=== PATIENT | female | born 1965 | race Caucasian/White ===

== ENCOUNTER 2020-08-27 20:08 | Inpatient (IN) | payer MEDICARE, OTHER ==
[~2020-08-27] VITALS: Ht 165.1 cm; Wt 83.0 kg
[2020-08-27 20:57] VITALS: BP 139/76
[2020-08-27] MEDS ORDERED: TEMAZEPAM 7.5 MG CAPSULE PO PRN (21:00)
[2020-08-27] MEDS ORDERED: ACETAMINOPHEN 325 MG TABLET PO PRN (21:00)
[2020-08-27] MEDS ORDERED: BLOOD SUGAR DIAGNOSTIC 1 EACH STRIP IN ONE (21:00)
[2020-08-27] MEDS ORDERED: MAGNESIUM HYDROXIDE 30 ML UDC PO PRN (21:00)
[2020-08-27] MEDS ORDERED: LORAZEPAM 0.5 MG TABLET PO PRN (21:00)
[2020-08-27] MEDS ORDERED: MAG HYDROX/AL HYDROX/SIMETH 30 ML UDC PO PRN (21:00)
[2020-08-28] MEDS ORDERED: ARIP10TA9 PO (00:08)
[2020-08-28] MEDS ORDERED: LEVO50TA8 PO (00:08)
[2020-08-28] MEDS ORDERED: SERT50TA PO (00:08)
--- NOTE | 2020-08-28 00:08 | NUR ---
GPS RN NOTE: ADMISSION NOTE PT ARRIVED ON THE UNIT @ 2044, PT WAS ADMITTED FROM [facility] PT IS PLACED ON A 5150 DUE TO GD, PER HOLD PT WAS BROUGHT INTO [facility] BY LAW ENFORCEMENT ON 08/26 AFTER SHE LEFT HER HER SHELTER AMA AND WAS LATE FOUND WALKING ON THE STREETS NAKED. UPON ASSESSMENT PT CLAIMS THAT SHE DOES NOT LIVE IN A SHELTER BUT LIVES IN A HOUSE BY HERSELF BUT SHE DOES NOT WANT TO TELL ME WHERE. PT IS A/O X3, FLAT, BLUNT AFFECT, UNKEPT, UNCOOPERATIVE, PARANOID, GUARDED, ANXIOUS, LABILE MOOD. PT REFUSED SKIN ASSESSMENT, PT REFUSED TO ANSWER QUESTIONS SHE STATED "I DON'T BELONG HERE LEAVE ME ALONE", PT DENIES SI/HI, DENIES AVH BUT IS FOUND TALKING TO SELF. VSS AT THIS TIME, NOTED PT HAD MILD NONPITTING EDEMA +2, ON ANKLES, NO DISTRESS NOTED OR C/O OF PAIN. PT HAS MEDICAL HISTORY OF HYPOTHYROIDISM, PSYCH HX: BIPOLAR D/O AND SCHIZOPHRENIA. PT WILL BE UNDER THE MEDICAL OF DR. BOWMAN AND PSYCHIATRIC CARE OF DR. VICENTE. PAGED DR. BOWMAN WHO IS [employer] @ 0000, FOR MED RECON. PT ADVISED OF HOLD, ADVISEMENT GIVEN TO PT, PT MADE AWARE OF THE UNIT, WILL CONTINUE TO MONITOR Q15MIN FOR SAFETY AND BEHAVIOR.
[2020-08-28 05:23] LABS: BILIRUBIN,URINE NEGATIVE (NEGATIVE); COLOR,URINE YELLOW (YELLOW); PROTEIN,URINE NEGATIVE (NEGATIVE); UGLUCOSE NEGATIVE (NEGATIVE)
[2020-08-28 05:24] LABS: LEUKOCYTE ESTERASE ,URINE SMALL (NEGATIVE); NITRITE, URINE NEGATIVE (NEGATIVE); UROBILINOGEN,URINE 0.2 EU/dL (0.2)
[2020-08-28 05:25] LABS: BACTERIA,URINE Few /HPF (None Seen); SQUAMOUS EPITHELIAL CELL,UR Many /HPF (None Seen)
[2020-08-28 05:26] LABS: URINE AMORPHOUS PHOSPHATES Many /HPF (None Seen)
[2020-08-28 08:00] VITALS: BP 138/68
[2020-08-28] MEDS: LEVOTHYROXINE SODIUM 50 MCG TABLET PO SCH (08:45)
--- NOTE | 2020-08-28 09:00 | NUR ---
RN NOTE- PT ALERT ORIENTED TO SELF, CONFUSED DISORGANIZED INTERNALLY PREOCCUPIED, MUMBLING GESTURING TO CEILING, DENIES ALL BUT CONFUSION PRESENT, PO INTAKE GOOD USES BR , BRUSHED TEETH AND PERFORMED MINOR GROOMING
[2020-08-28 16:00] VITALS: BP 137/69
[2020-08-28] MEDS: CEPHALEXIN MONOHYDRATE 500 MG CAPSULE PO SCH (17:41)
[2020-08-28 19:44] VITALS: BP 145/71
[2020-08-28] MEDS: risperiDONE 1 MG TABLET PO SCH (20:01)
[2020-08-29] MEDS: risperiDONE 1 MG TABLET PO SCH ×2 (07:59→20:07)
[2020-08-29 08:00] VITALS: BP 134/73
[2020-08-29] MEDS: CEPHALEXIN MONOHYDRATE 500 MG CAPSULE PO SCH ×2 (08:00→20:07)
[2020-08-29] MEDS: LEVOTHYROXINE SODIUM 50 MCG TABLET PO SCH (08:00)
--- NOTE | 2020-08-29 14:27 | NUR ---
Initial Discharge Plan: Unable to ascertain where the pt resides due to the pts psychosis. Per pt, she does not want to state where she lives. KIMBERLEE will work with the MD and the pt regarding appropriate discharge planning. SW will form a safe and proper discharge.
--- NOTE | 2020-08-29 14:27 | NUR ---
Family Contact: Pt does not have any family listed for the SW to contact.
[2020-08-29 16:00] VITALS: BP 144/76
[2020-08-29 19:45] VITALS: BP 134/66
[2020-08-30 07:53] LABS: BASOPHILS % (AUTO) 0.6 % (0.0-2.0); EOSINOPHILS % (AUTO) 2.8 % (0.0-6.0); HEMATOCRIT 40 % (33-45); HEMOGLOBIN 13.3 g/dL (11.5-14.8); LYMPHOCYTES # (AUTO) 1.5 /CMM (0.8-4.8); LYMPHOCYTES % (AUTO) 22.2 % (20.0-44.0); MEAN CORPUSCULAR HGB CONC 34 g/dl (31.0-36.0); MEAN CORPUSCULAR VOLUME 92 fL (82-100); MONOCYTES # (AUTO) 0.8 /CMM (0.1-1.30); MONOCYTES % (AUTO) 11.9 % (2.0-12.0); NEUTROPHILS # (AUTO) 4.2 /CMM (1.8-8.9); NEUTROPHILS % (AUTO) 62.5 % (43.0-81.0); PLATELET COUNT (AUTO) 290 /CMM (150-450); WHITE BLOOD COUNT (AUTO) 6.8 K/uL (4.3-11.0)
[2020-08-30 08:00] VITALS: BP 101/70
[2020-08-30] MEDS: LEVOTHYROXINE SODIUM 50 MCG TABLET PO SCH (09:00)
[2020-08-30] MEDS: CEPHALEXIN MONOHYDRATE 500 MG CAPSULE PO SCH ×2 (09:26→20:56)
[2020-08-30] MEDS: risperiDONE 1 MG TABLET PO SCH ×2 (09:26→20:56)
[2020-08-30 13:25] LABS: CALCIUM, SERUM 8.8 mg/dL (8.5-10.1); CREATININE 0.6 mg/dL (0.6-1.3); MAGNESIUM 2.2 mg/dL (1.8-2.4); PHOSPHORUS 3.5 mg/dL (2.5-4.9); POTASSIUM 4.2 mmol/L (3.5-5.1)
[2020-08-30 16:00] VITALS: BP 123/67
--- NOTE | 2020-08-30 19:19 | NUR ---
GPS RN NOTE, RECEIVED PATIENT AWAKE AND IN BED, NO S/S OR COMPLAINTS OF PAIN AT THIS TIME. PATIENT IS DISPLAYING NO S/S OF APPARENT DISTRESS AT THIS TIME. PATIENT BREATHING IS UNLABORED WITH EQUAL RISE AND FALL OF THE CHEST. PATIENT IS ALERT AND ORIENTED X 3 ON ROOM AIR WITH A SPO2 96%. PATIENT IS COMPLIANT WITH MEDICATIONS, DEMANDING, ANXIOUS AT TIMES, EASILY IRRITABLE, AND COOPERATIVE. PATIENT DENIES SUICIDAL AND HOMICIDAL IDEATIONS AT THIS TIME. PATIENT ASSISTED WITH TURNING AND REPOSITIONING Q2HR AND PRN FOR COMFORT AND CIRCULATION. PATIENT HAS NO NEEDS AT THIS TIME. PATIENT EDUCATED ON THE USE OF THE CALL VASQUEZ. PATIENT BED SIDE RAILS UP X 2 FOR SAFETY. PATIENT BED IS LOCKED, LOW, WITH BED ALARM ON. WILL CONTINUE TO MONITOR THIS PATIENT Q15 MINUTES WITH THE HELP OF STAFF TO MAINTAIN SAFETY.
[2020-08-30 19:38] VITALS: BP 126/71
--- NOTE | 2020-08-31 07:30 | NUR ---
GPS RN NOTE, RECEIVED PATIENT AWAKE AND IN BED, NO S/S OR COMPLAINTS OF PAIN AT THIS TIME. PATIENT IS DISPLAYING NO S/S OF APPARENT DISTRESS AT THIS TIME. PATIENT BREATHING IS UNLABORED WITH EQUAL RISE AND FALL OF THE CHEST. PATIENT IS ALERT AND ORIENTED X 3 ON ROOM AIR WITH A SPO2 96%. PATIENT IS SELECTIVE WITH MEDICATIONS, DEMANDING, ANXIOUS AT TIMES, EASILY IRRITABLE, AND COOPERATIVE. PATIENT DENIES SUICIDAL AND HOMICIDAL IDEATIONS AT THIS TIME. PATIENT ASSISTED WITH TURNING AND REPOSITIONING Q2HR AND PRN FOR COMFORT AND CIRCULATION. PATIENT HAS NO NEEDS AT THIS TIME. PATIENT EDUCATED ON THE USE OF THE CALL VASQUEZ. PATIENT BED SIDE RAILS UP X 2 FOR SAFETY. PATIENT BED IS LOCKED, LOW, WITH BED ALARM ON. WILL CONTINUE TO MONITOR THIS PATIENT Q15 MINUTES WITH THE HELP OF STAFF TO MAINTAIN SAFETY.
[2020-08-31 08:00] VITALS: BP 163/81
[2020-08-31] MEDS: CEPHALEXIN MONOHYDRATE 500 MG CAPSULE PO SCH ×2 (08:13→20:15)
[2020-08-31] MEDS: risperiDONE 1 MG TABLET PO SCH ×2 (08:22→20:15)
[2020-08-31] MEDS: LEVOTHYROXINE SODIUM 50 MCG TABLET PO SCH (08:22)
--- NOTE | 2020-08-31 08:22 | NUR ---
GPS RN NOTE, PATIENT REFUSED TO TAKE RISPERDAL 1.5MG PO Q12 NÉSTOR AND REFUSED SYNTHROID 50 MCG PO DAILY. OFFERED AFOREMENTIONED MEDICATION THREE TIMES AND STILL PATIENT REFUSED BY STATING, " NO I DON'T TAKE THOSE MEDICATIONS ANY MORE ". EDUCATE PATIENT ON THE RISKS AND BENEFITS OF TAKING AND REFUSING RISPERDAL AND SYNTHROID. WILL CONTINUE TO MONITOR THIS PATIENT.
[2020-08-31 19:43] VITALS: BP 149/69
[2020-09-01 08:00] VITALS: BP 136/62
[2020-09-01] MEDS: LEVOTHYROXINE SODIUM 50 MCG TABLET PO SCH (08:37)
[2020-09-01] MEDS: CEPHALEXIN MONOHYDRATE 500 MG CAPSULE PO SCH ×2 (08:37→20:28)
[2020-09-01] MEDS: risperiDONE 1 MG TABLET PO SCH ×2 (08:39→20:28)
--- NOTE | 2020-09-01 11:43 | NUR ---
RNMaliaCO: PT IS SELECTIVE WITH MEDS, REFUSED ANTI PSYCHOTIC MED.
--- NOTE | 2020-09-01 12:51 | NUR ---
RN-CO: ATIVAN 1 MG PO GIVEN FOR AGITATION AND HEAVY RESPONDING TO INTERNAL STIMULI.
--- NOTE | 2020-09-01 13:10 | NUR ---
RN-CO:Patient is very agitated, screaming, yelling at unseen others. Slamming her door. She yelled to RN " you are stealing my money!"Ativan 1 mg po gien.
[2020-09-01 16:00] VITALS: BP 151/88
--- NOTE | 2020-09-01 19:00 | NUR ---
RN-CO: NOTIFIED DR NAYAK RE: PT'S DRY COUGH, AWAITING FOR ORDERS.
[2020-09-01 19:30] VITALS: BP 147/67
--- NOTE | 2020-09-01 20:00 | NUR ---
GPS-RN NOTE: PATIENT REFUSED WEEKLY SKIN BODY ASSESSMENT.
--- NOTE | 2020-09-01 21:04 | NUR ---
GPS-RN NOTE: NON-PRODUCTIVE COUGH PATIENT IS HAVING OCCASIONAL NON-PRODUCTIVE COUGH. PT IS AFEBRILE. EPIC ON-CALL PAGED. AWAITING CALL BACK. 2105 - SPOKE TO DR. WILLIS NOTIFIED REGARDING PT'S FINDING. AND ALSO INFORMED MD, PER PATIENT SHE REFUSED TO HAVE X-RAY OR COUGH MEDICATIONS. PER DR. BOWMAN NO NEW ORDER AT THIS TIME.
--- NOTE | 2020-09-01 22:35 | NUR ---
GPS-RN NOTE: RESTORIL 15MG PO PRN REFUSED BY PATIENT. WASTED TO MED DISPOSAL AND PYXIS WITNESSED BY NELSON HUIZAR.
[2020-09-02 08:00] VITALS: BP 146/76
[2020-09-02] MEDS: risperiDONE 1 MG TABLET PO SCH ×2 (08:10→20:41)
[2020-09-02] MEDS: CEPHALEXIN MONOHYDRATE 500 MG CAPSULE PO SCH ×2 (08:10→20:39)
[2020-09-02] MEDS: LEVOTHYROXINE SODIUM 50 MCG TABLET PO SCH (08:10)
--- NOTE | 2020-09-02 09:00 | NUR ---
RN NOTE- PT QUIET WITHDRAWN ISOLATIVE RESPONDING TO INTERNAL STIMULUS, INTERNALLY PREOCCUPIED PO INTAKE GOOD MED COMPLIANT THUS FAR INTERACTIVE FOR NEEDS
[2020-09-02 20:00] VITALS: BP 152/93
--- NOTE | 2020-09-02 21:21 | NUR ---
GPS-RN NOTE: MEDICATION REFUSAL PATIENT REFUSED RISPERDAL DOSE SCHEDULED. EDUCATED PATIENT REGARDING MEDICATION COMPLIANCE BUT PATIENT CONTINUED TO REFUSE. PATIENT STATED "I DON'T WANT IT, I AM NOT SCHIZOPHRENIC". WILL ENDORSE TO AM SHIFT TO INFORM MD.
[2020-09-03] MEDS: risperiDONE 1 MG TABLET PO SCH ×2 (08:05→21:00)
[2020-09-03] MEDS: CEPHALEXIN MONOHYDRATE 500 MG CAPSULE PO SCH ×2 (08:05→21:00)
[2020-09-03] MEDS: LEVOTHYROXINE SODIUM 50 MCG TABLET PO SCH (08:05)
--- NOTE | 2020-09-03 10:03 | NUR ---
SNF Referral: SW faxed a referral to the following two usp facilities: [facility] with attn to Brittany to the fax number: [phone] [facility] with attn to Sohan to the fax number: [phone]
[2020-09-03 16:01] VITALS: BP 124/63
--- NOTE | 2020-09-03 19:54 | NUR ---
GPS RN NOTE, PATIENT REFUSED VITAL SIGNS. OFFERED TO DO THEM THREE TIMES AND STILL PATIENT REFUSED STATING, " NO I'M SLEEPING AND DON'T YOU DARE TOUCH ME ". EDUCATED PATIENT ON THE RISKS AND BENEFITS OF TAKING AND REFUSING VITAL SIGNS. WILL CONTINUE TO MONITOR THIS PATIENT.
--- NOTE | 2020-09-03 21:09 | NUR ---
GPS RN NOTE, PATIENT REFUSED TO TAKE RISPERDAL 1.5MG PO Q12 NÉSTOR AND REFUSED KEFLEX 500 MG PO Q12HR NÉSTOR. OFFERED AFOREMENTIONED MEDICATION THREE TIMES AND STILL PATIENT REFUSED BY STATING, " NO I DON'T TAKE THOSE MEDICATIONS ANY MORE I AM NOT SCHIZOPHASIC AND I DON'T NEED THEM ". EDUCATE PATIENT ON THE RISKS AND BENEFITS OF TAKING AND REFUSING RISPERDAL AND KEFLEX. WILL CONTINUE TO MONITOR THIS PATIENT.
[2020-09-04] MEDS: risperiDONE 1 MG TABLET PO SCH ×2 (08:42→21:00)
[2020-09-04] MEDS: LEVOTHYROXINE SODIUM 50 MCG TABLET PO SCH (08:43)
[2020-09-04] MEDS: CEPHALEXIN MONOHYDRATE 500 MG CAPSULE PO SCH ×2 (08:44→21:00)
--- NOTE | 2020-09-04 09:06 | NUR ---
RN-CO: PT REFUSED RISPERDAL AND SYNTHROID ENCOURAGED TO TAKE IT 3X STILL REFUSED AND GET ANGRY.
--- NOTE | 2020-09-04 10:32 | NUR ---
SNF Contact: Enma ([phone]) from [facility] called the SW and stated that the pt was accepted to their facility.
[2020-09-04] MEDS: SERTRALINE HCL 50 MG TABLET PO SCH (22:04)
[2020-09-04] MEDS: ARIPIPRAZOLE 5 MG TABLET PO SCH (22:04)
[2020-09-05 08:20] VITALS: BP 125/69
[2020-09-05] MEDS: CEPHALEXIN MONOHYDRATE 500 MG CAPSULE PO SCH ×2 (08:31→21:00)
[2020-09-05] MEDS: SERTRALINE HCL 50 MG TABLET PO SCH (08:31)
[2020-09-05] MEDS: ARIPIPRAZOLE 5 MG TABLET PO SCH ×2 (08:31→16:45)
[2020-09-05] MEDS: LEVOTHYROXINE SODIUM 50 MCG TABLET PO SCH (08:31)
--- NOTE | 2020-09-05 08:33 | NUR ---
rn notes patient selective with medication, refused Synthroid.
--- NOTE | 2020-09-05 13:05 | NUR ---
SNF Contact: Brittany ([phone]) from [facility] contacted the SW and stated that the pt was not admitted to their facility due to the pt refusing to pay the share of cost.
[2020-09-05 16:35] VITALS: BP 152/86
[2020-09-06 08:18] VITALS: BP 141/78
[2020-09-06] MEDS: CEPHALEXIN MONOHYDRATE 500 MG CAPSULE PO SCH (08:53)
[2020-09-06] MEDS: ARIPIPRAZOLE 5 MG TABLET PO SCH ×2 (08:53→21:06)
[2020-09-06] MEDS: LEVOTHYROXINE SODIUM 50 MCG TABLET PO SCH (08:53)
[2020-09-06] MEDS: SERTRALINE HCL 50 MG TABLET PO SCH (08:53)
[2020-09-06 14:52] VITALS: BP 157/61
[2020-09-06 16:00] VITALS: BP 157/61
[2020-09-06 21:03] VITALS: BP 131/71
[2020-09-07 08:00] VITALS: BP 155/89
[2020-09-07] MEDS: ARIPIPRAZOLE 5 MG TABLET PO SCH ×2 (08:29→21:09)
[2020-09-07] MEDS: SERTRALINE HCL 50 MG TABLET PO SCH (08:30)
--- NOTE | 2020-09-07 08:30 | NUR ---
GPS RN NOTES: PATIENT REFUSED HER SYNTHROID MEDICATION-, PER PATIENT SHE HAS NOT BEEN TAKING IT.
[2020-09-07] MEDS: LEVOTHYROXINE SODIUM 50 MCG TABLET PO SCH (08:32)
[2020-09-07 15:59] VITALS: BP 143/87
--- NOTE | 2020-09-07 19:30 | NUR ---
GPS RN NOTE, RECEIVED PATIENT AWAKE AND IN BED, NO S/S OR COMPLAINTS OF PAIN AT THIS TIME. PATIENT IS DISPLAYING NO S/S OF APPARENT DISTRESS AT THIS TIME. PATIENT BREATHING IS UNLABORED WITH EQUAL RISE AND FALL OF THE CHEST. PATIENT IS ALERT AND ORIENTED X 3 ON ROOM AIR WITH A SPO2 95%. PATIENT IS SELECTIVE WITH MEDICATIONS, DEMANDING, ANXIOUS AT TIMES, EASILY IRRITABLE, AND COOPERATIVE. PATIENT DENIES SUICIDAL AND HOMICIDAL IDEATIONS AT THIS TIME. PATIENT ASSISTED WITH TURNING AND REPOSITIONING Q2HR AND PRN FOR COMFORT AND CIRCULATION. PATIENT HAS NO NEEDS AT THIS TIME. PATIENT EDUCATED ON THE USE OF THE CALL VASQUEZ. PATIENT BED SIDE RAILS UP X 2 FOR SAFETY. PATIENT BED IS LOCKED, LOW, WITH BED ALARM ON. WILL CONTINUE TO MONITOR THIS PATIENT Q15 MINUTES WITH THE HELP OF STAFF TO MAINTAIN SAFETY.
[2020-09-07 19:55] VITALS: BP 144/78
[2020-09-08 08:00] VITALS: BP 145/53
[2020-09-08] MEDS: SERTRALINE HCL 50 MG TABLET PO SCH (08:04)
[2020-09-08] MEDS: ARIPIPRAZOLE 5 MG TABLET PO SCH ×2 (08:04→21:31)
[2020-09-08] MEDS: LEVOTHYROXINE SODIUM 50 MCG TABLET PO SCH (08:04)
--- NOTE | 2020-09-08 09:00 | NUR ---
RN NOTE- PT LAUGHING TO SELF, GROWLING AND YELLING IN ROOM AT TIMES, INTERNALLY PREOCCUPIED, HOARDING ITEMS, WASHING FACE AND HAND COMPULSIVELY, PO INTAKE GOOD DENIES ALL
[2020-09-08 15:40] VITALS: BP 143/81
[2020-09-08 20:00] VITALS: BP 140/80
--- NOTE | 2020-09-09 07:21 | NUR ---
GPS RN NOTE: REFUSED SKIN ASSESSMENT PATIENT REFUSED SKIN ASSESSMENT X3 AT THIS TIME, EASILY AGITATED, ANXIOUS & REFUSED TO BE TOUCHED AT ALL. UNCOOPERATIVE. WILL CONTINUE TO MONITOR.
[2020-09-09 08:00] VITALS: BP 154/78
[2020-09-09] MEDS: ARIPIPRAZOLE 5 MG TABLET PO SCH ×2 (09:03→22:05)
[2020-09-09] MEDS: LEVOTHYROXINE SODIUM 50 MCG TABLET PO SCH (09:04)
[2020-09-09] MEDS: SERTRALINE HCL 50 MG TABLET PO SCH (09:04)
--- NOTE | 2020-09-09 11:18 | NUR ---
SNF Contact: KIMBERLEE contacted Enma ([phone]) from [facility] and informed him that the pt will be discharged to their facility the following day.
[2020-09-09 18:07] VITALS: BP 153/91
--- NOTE | 2020-09-09 20:31 | NUR ---
GPS RN NOTE: PT REFUSED VITALS PT REFUSED VITALS, ASKED 3X, EDUCATED PT ABOUT REASON IT IS IMPORTANT TO ALLOW US TO TAKE VITALS, BENEFITS, CONS, PT STILL REFUSED, NO DISTRESS WAS NOTED, PT SHOWS NON LABORED BREATHING, DENIES PAIN, WILL CONTINUE TO MONITOR Q15MIN FOR SAFETY AND BEHAVIOR.
[2020-09-10 08:18] VITALS: BP 142/82
[2020-09-10] MEDS: ARIPIPRAZOLE 5 MG TABLET PO SCH (08:22)
[2020-09-10] MEDS: SERTRALINE HCL 50 MG TABLET PO SCH (08:23)
[2020-09-10] MEDS: LEVOTHYROXINE SODIUM 50 MCG TABLET PO SCH (08:24)
--- NOTE | 2020-09-10 14:22 | NUR ---
Discharge Note: Pt will be discharged to [facility] ([facility]) located at [address] [place] [address]; ([phone]). Pt was transported via [facility] (Trip #[id number]) at 3:45PM. Pt does not have any family to contact. Upon discharge, the pt appeared to be in a dysphoric mood and presented with a paranoid affect. Pt denied both suicidal and homicidal ideation as well as auditory and visual hallucinations. Pt appeared to be alert and oriented x4 (time, place, self and situation). Pt appears to be well groomed and appropriately dressed. Pt appeared to be paranoid and suspicious and continued to refuse to speak with the SW. Pt will be under the care of his psychiatrist, Dr. Bernal, located at [address] [place] [address]; ) and his enzyme chemist, Dr. Meyers, located at [address] [place] [address]; . Choice of vendor and the multidisciplinary exit care form were done, printed, signed, and given to the patient.
[2020-09-10 16:14] VITALS: BP 138/74
--- NOTE | 2020-09-10 17:17 | NUR ---
refining supervisor Note: Pt discharged to [facility] ([facility]) AT 17:15 in stable condition .Compliant with medications ,cooperative with treatment plans .Patient denies suicidal ideation denies homicidal ideation ,denies auditory visual hallucination .Behavior improved ,psychiatric tx plans met ,medical tx plans deferred for continual monitoring .Educated pt about after care plan (Exit -care)and copy provided ,returned personal belongings .medications reconciled with dr. Bernal and dr.Sam Sam .Report given to Blue OROSCO .Patient refused to sign discharge paperwork ,patient refused discharge photos .Patient left the unit at 17:15 via ambulance.
== END 2020-09-10 17:15 | DRG 885 ==
LOC: GPS 20:08
PROVIDERS: ADMIT Psychiatry & Neurology Psychiatry
DX: F20.0 Paranoid schizophrenia (principal); G93.41 Metabolic encephalopathy; N39.0 Urinary tract infection, site not specified; F29 Unspecified psychosis not due to a substance or known physiological condition; F41.9 Anxiety disorder, unspecified; F32.9 Major depressive disorder, single episode, unspecified; Z20.828 Contact with and (suspected) exposure to other viral communicable diseases; E03.9 Hypothyroidism, unspecified; E66.9 Obesity, unspecified; Z68.30 Body mass index [BMI] 30.0-30.9, adult; Z73.6 Limitation of activities due to disability; R27.8 Other lack of coordination; Z91.81 History of falling; R53.1 Weakness
CPT/HCPCS: 36415; 80048-TC; 81001; 82962-TC; 83735-TC; 84100-TC; 84443-TC; 85025-TC; 87081-TC